=== PATIENT | male | born 1975 | race Caucasian/White ===

== ENCOUNTER 2017-06-09 12:43 | Emergency (ER) | payer SELFPAY ==
[~2017-06-09] VITALS: Ht 175.3 cm; Wt 80.0 kg
[2017-06-09 13:05] VITALS: BP 132/83; PULSE 93; RESP 16; TEMP 98.1; O2SAT 92
[2017-06-09] MEDS ORDERED: MORPHINE SULFATE 4 MG/ML INJ IV PUSH ONE (13:15)
[2017-06-09] MEDS ORDERED: ONDANSETRON HCL 4 MG/2 ML VIAL IVP ONE (13:15)
[2017-06-09] MEDS ORDERED: SODIUM CHLORIDE 0.9% FLUSH 10 ML FLUSH IVF PRN (13:15)
--- NOTE | 2017-06-09 13:24 | PD ---
HPI Chief Complaint: Head Injury Time Seen by Provider: 13:02 Travel History International Travel<30 days: No Contact w/Intl Traveler<30days: No Traveled to known affect area: No History of Present Illness HPI Patient is a 41-year-old male presenting to the emergency department for evaluation of seizure-like activity. Patient is Somali-speaking and an foreign language interpreter was utilized to obtain information. Patient reported that he hit his head with a this morning while trying to remove a nail with a crowbar at work. He states he felt completely fine prior to that. A few hours later patient's coworkers reported seizure-like activity. Per EMS when they arrived on scene patient was postictal and confused. Patient has no history of seizure disorder, denies any illicit drug use or excessive alcohol intake. Patient was working on the fifth floor, he was wearing his harness while he had the seizure. He is currently complaining of jaw pain and states he cannot move his jaw. He states his pain is a 7 out of 10. He reports his last tetanus vaccine was 6 years ago. He denies any significant medical history or allergies to medications. Symptom onset was sudden, symptoms are very moderate. PFSH Past Medical History Medical History: Denies Significant Hx Past Surgical History Surgical History: No Previous Surgery Social History Alcohol Use: Yes (OCC) Tobacco Use: No Substance Use: No Allergies-Medications (Allergen,Severity, Reaction): Coded Allergies: No Known Allergies (Unverified , 06/09/17) Reported Meds & Prescriptions Reported Meds & Active Scripts Active Ibuprofen 800 Mg Tab 800 Mg PO Q6HR PRN Percocet (Oxycodone-Acetaminophen) 5-325 mg Tab 1 Tab PO Q4H PRN Review of Systems Except as stated in HPI: all other systems reviewed are Neg HENT: No: Headaches, Neck Pain Cardiovascular: No: Chest Pain or Discomfort Gastrointestinal: No: Nausea, Abdominal Pain Musculoskeletal: Positive: Limited ROM, Pain Skin: Positive Other (Superficial laceration) Neurologic: Positive: Seizures Physical Exam Narrative GENERAL: Well-developed, well-nourished, alert male. Presenting in no acute distress. SKIN: Warm and dry. 1 cm superficial laceration and abrasion to left forehead. HEAD: Atraumatic. Normocephalic. Jaw appears edematous on the right side, significant limited range of motion. EYES: Pupils equal and round. No scleral icterus. No injection or drainage. ENT: No nasal bleeding or discharge. Mucous membranes pink and moist. NECK: Trachea midline. No JVD. CARDIOVASCULAR: Regular rate and rhythm. RESPIRATORY: No accessory muscle use. Clear to auscultation. Breath sounds equal bilaterally. GASTROINTESTINAL: Abdomen soft, non-tender, nondistended. Hepatic and splenic margins not palpable. MUSCULOSKELETAL: Extremities without clubbing, cyanosis, or edema. No obvious deformities. NEUROLOGICAL: Awake and alert. No obvious cranial nerve deficits. Motor grossly within normal limits. Five out of 5 muscle strength in the arms and legs. Normal speech. PSYCHIATRIC: Appropriate mood and affect; insight and judgment normal. Data Data Last Documented VS Vital Signs Date Time Temp Pulse Resp B/P (MAP) Pulse Ox O2 Delivery O2 Flow Rate FiO2 06/09/17 16:19 88 18 126/81 (96) 96 Room Air 06/09/17 13:05 98.1 Orders Orders Electrocardiogram (06/09/17 13:03) Prothrombin Time / Inr (Pt) (06/09/17 13:03) Act Partial Throm Time (Ptt) (06/09/17 13:03) Complete Blood Count With Diff (06/09/17 13:03) Comprehensive Metabolic Panel (06/09/17 13:03) Creatine Kinase (Cpk) (06/09/17 13:03) Drug Screen, Random Urine (06/09/17 13:03) Troponin I (06/09/17 13:03) Urinalysis - C+S If Indicated (06/09/17 13:03) Ct Brain W/O Iv Contrast(Rout) (06/09/17 13:03) Ecg Monitoring (06/09/17 13:03) Iv Access Insert/Monitor (06/09/17 13:03) Oximetry (06/09/17 13:03) Morphine Inj (Morphine Inj) (06/09/17 13:15) Ondansetron Inj (Zofran Inj) (06/09/17 13:15) Sodium Chloride 0.9% Flush (Ns Flush) (06/09/17 13:15) Ct Facial Bones W/O Iv Cont (06/09/17 ) Ct Cerv Spine W/O Contrast (06/09/17 ) CKMB (06/09/17 13:10) CKMB% (06/09/17 13:10) Morphine Inj (Morphine Inj) (06/09/17 14:45) Orphenadrine Inj (Norflex Inj) (06/09/17 14:45) Sodium Chlor 0.9% 1000 Ml Inj (Ns 1000 M (06/09/17 16:15) Midazolam Inj (Versed Inj) (06/09/17 17:45) Propofol 200 Mg/20 Ml Inj (Diprivan 200 (06/09/17 17:45) Labs Laboratory Tests Test 06/09/17 13:10 06/09/17 15:25 White Blood Count 8.4 TH/MM3 Red Blood Count 4.88 MIL/MM3 Hemoglobin 15.4 GM/DL Hematocrit 42.9 % Mean Corpuscular Volume 88.0 FL Mean Corpuscular Hemoglobin 31.5 PG Mean Corpuscular Hemoglobin Concent 35.8 % Red Cell Distribution Width 13.7 % Platelet Count 231 TH/MM3 Mean Platelet Volume 8.3 FL Neutrophils (%) (Auto) 72.1 % Lymphocytes (%) (Auto) 19.2 % Monocytes (%) (Auto) 5.4 % Eosinophils (%) (Auto) 2.6 % Basophils (%) (Auto) 0.7 % Neutrophils # (Auto) 6.1 TH/MM3 Lymphocytes # (Auto) 1.6 TH/MM3 Monocytes # (Auto) 0.5 TH/MM3 Eosinophils # (Auto) 0.2 TH/MM3 Basophils # (Auto) 0.1 TH/MM3 CBC Comment AUTO DIFF Differential Comment AUTO DIFF CONFIRMED Prothrombin Time 10.9 SEC Prothromb Time International Ratio 1.1 RATIO Activated Partial Thromboplast Time 19.7 SEC Blood Urea Nitrogen 21 MG/DL Creatinine 1.04 MG/DL Random Glucose 103 MG/DL Total Protein 7.5 GM/DL Albumin 3.7 GM/DL Calcium Level 7.9 MG/DL Alkaline Phosphatase 75 U/L Aspartate Amino Transf (AST/SGOT) 37 U/L Alanine Aminotransferase (ALT/SGPT) 59 U/L Total Bilirubin 0.3 MG/DL Sodium Level 139 MEQ/L Potassium Level 3.8 MEQ/L Chloride Level 102 MEQ/L Carbon Dioxide Level 28.3 MEQ/L Anion Gap 9 MEQ/L Estimat Glomerular Filtration Rate 79 ML/MIN Total Creatine Kinase 433 U/L Creatine Kinase MB 3.0 NG/ML Creatine Kinase MB % 0.7 % Troponin I LESS THAN 0.02 NG/ML Urine Color YELLOW Urine Turbidity HAZY Urine pH 7.5 Urine Specific [place] 1.022 Urine Protein 30 mg/dL Urine Glucose (UA) NEG mg/dL Urine Ketones NEG mg/dL Urine Occult Blood NEG Urine Nitrite NEG Urine Bilirubin NEG Urine Urobilinogen LESS THAN 2.0 MG/DL Urine Leukocyte Esterase NEG Urine WBC 3 /hpf Urine Hyaline Casts 1 /lpf Urine Sperm RARE Microscopic Urinalysis Comment CATH-CULT NOT IND Urine Opiates Screen NEG Urine Barbiturates Screen NEG Urine Amphetamines Screen NEG Urine Benzodiazepines Screen NEG Urine Cocaine Screen NEG Urine Cannabinoids Screen NEG MDM Medical Decision Making Medical Screen Exam Complete: Yes Emergency Medical Condition: Yes Interpretation(s) Vital Signs Date Time Temp Pulse Resp B/P (MAP) Pulse Ox O2 Delivery O2 Flow Rate FiO2 06/09/17 13:05 98.1 93 16 132/83 (99) 92 Differential Diagnosis Seizure versus fracture versus hemorrhage versus metabolic abnormality versus ACS versus AMI versus other Narrative Course Patient is a 41-year-old male presenting to emergency for evaluation after what appeared to be a seizure at work. Patient is favoring his jaw, he is unable to open and close it. Patient states vital signs are stable. Labs and imaging ordered and pending. Patient was initially seen in the [facility], he has been moved to [place] [id number] scan of the brain shows no acute findings, CT scan of the cervical spine with no acute findings, CT scan of the facial bones with no acute fracture, mandible is not dislocated. CT scan images were reevaluated by radiologist, jaw was bilaterally dislocated. Discussed with Dr. Parra who came to the emergency department and evaluated patient. Dr. Parra subsequently reduce the jaw. He ordered a jaw bra from the OR control desk. He stated that patient was able to eat a full liquid diet , he advised to keep the jaw bra on for 48 hours. Laceration to scalp does not need repair. Wound was cleaned and bandage applied. Patient has no history of seizure disorder, he is advised to follow-up with his primary doctor and/or neurologist for further evaluation. It is unclear if patient actually had seizure, reports are vague in regards to how the events unfolded. Patient was given instructions on avoiding heights, driving until he is evaluated by a primary doctor or at the [facility]. He verbalized understanding. Patient verbalized understanding of instructions. Patient stable for discharge. Diagnosis Primary Impression: Dislocation, jaw closed Qualified Codes: S03.00XA - Dislocation of jaw, unspecified side, initial encounter Additional Impression: Observed seizure-like activity Referrals: [facility] Primary Care Physician Patient Instructions: General Instructions, Mandibular Dislocation (ED), Nonepileptic Seizures (ED) Additional Instructions: Keep jaw bra on for 48 hours Maintain a liquid diet for 48 hours Follow-up with your primary doctor Return to emergency department for any new or worsening symptoms Take medication for pain as needed and as directed, do not drive or operate machinery while taking narcotic pain medication Avoid heights, avoid driving until you are reevaluated by your primary doctor in regards to possible seizure today. Med/Other Pt SpecificInfo: Prescription(s) given Scripts Ibuprofen (Ibuprofen) 800 Mg Tab 800 MG PO Q6HR Y for PAIN, #40 TAB 0 Refills Prov: Bell Nunez 06/09/17 Oxycodone-Acetaminophen (Percocet) 5-325 mg Tab 1 TAB PO Q4H Y for PAIN, #15 TAB 0 Refills Prov: Bell Nunez 06/09/17 Disposition: 01 DISCHARGE HOME Condition: Stable Bell Nunez Jun 09, 2017 13:24
--- NOTE | 2017-06-09 13:44 | RADRPT ---
EXAM DATE/TIME: 06/09/2017 13:24 [facility] COMPARISON: No previous studies available for comparison. INDICATIONS : Seizure, hit head. Cannot close jaw. RADIATION DOSE: 24.31 CTDIvol (mGy) MEDICAL HISTORY : None SURGICAL HISTORY : None. ENCOUNTER: Initial ACUITY: 1 day PAIN SCALE: 4/10 LOCATION: Bilateral facial TECHNIQUE: Volumetric scanning of the cervical spine was performed. Multiplanar reconstructions in the sagittal, coronal and oblique axial planes were performed. Using automated exposure control and adjustment o f the mA and/or kV according to patient size, radiation dose was kept as low as reasonably achievable to obtain optimal diagnostic quality images. DICOM format image data is available electronically f or review and comparison. FINDINGS: VERTEBRAE: Normal vertebral body height. ALIGNMENT: No evidence of subluxation. C2-C3: The bony spinal canal is normal in size. No evidence of disc bulge or herniation. The neural forami na are bilaterally patent. C3-C4: The bony spinal canal is normal in size. No evidence of disc bulge or herniation. The neural forami na are bilaterally patent. C4-C5: The bony spinal canal is normal in size. No evidence of disc bulge or herniation. The neural forami na are bilaterally patent. C5-C6: The bony spinal canal is normal in size. No evidence of disc bulge or herniation. The neural forami na are bilaterally patent. C6-C7: The bony spinal canal is normal in size. No evidence of disc bulge or herniation. The neural forami na are bilaterally patent. C7-T1: The bony spinal canal is normal in size. No evidence of disc bulge or herniation. The neural forami na are bilaterally patent. CONCLUSION: Negative for an acute process Luiz Chu MD FACR on June 09, 2017 at 13:42 Board Certified Radiologist. This report was verified electronically.
--- NOTE | 2017-06-09 13:44 | RADRPT ---
EXAM DATE/TIME: 06/09/2017 13:24 [facility] COMPARISON: No previous studies available for comparison. INDICATIONS : Seizure, hit head. Cannot close jaw. RADIATION DOSE: 69.15 CTDIvol (mGy) MEDICAL HISTORY : None SURGICAL HISTORY : None. ENCOUNTER: Initial ACUITY: 1 day PAIN SCALE: 4/10 LOCATION: Bilateral facial TECHNIQUE: Multiple contiguous axial images were obtained of the head. Using automated exposure control and adj ustment of the mA and/or kV according to patient size, radiation dose was kept as low as reasonably a chievable to obtain optimal diagnostic quality images. DICOM format image data is available electro nically for review and comparison. FINDINGS: CEREBRUM: The ventricles are normal for age. No evidence of midline shift, mass lesion, hemorrhage or acute in farction. No extra-axial fluid collections are seen. Previous surgery in the left from the region. Minimal encephalomalacic changes are present. POSTERIOR FOSSA: The cerebellum and brainstem are intact. The 4th ventricle is midline. The cerebellopontine angle i s unremarkable. EXTRACRANIAL: The visualized portion of the orbits is intact. SKULL: The calvaria is intact. No evidence of skull fracture. CONCLUSION: Negative for acute process Luiz Chu MD FACR on June 09, 2017 at 13:41 Board Certified Radiologist. This report was verified electronically.
--- NOTE | 2017-06-09 13:50 | RADRPT ---
EXAM DATE/TIME: 06/09/2017 13:24 This report includes an Addendum and supersedes previous reports for this exam. [facility] COMPARISON: No previous studies available for comparison. INDICATIONS : Seizure, hit head. Cannot close jaw. RADIATION DOSE: 26.51 CTDIvol (mGy) MEDICAL HISTORY : None SURGICAL HISTORY : None. ENCOUNTER: Initial ACUITY: 1 day PAIN SCORE: 4/10 LOCATION: Bilateral facial TECHNIQUE: Volumetric scanning of the facial bones was performed. Using automated exposure control and adjustme nt of the mA and/or kV according to patient size, radiation dose was kept as low as reasonably achiev able to obtain optimal diagnostic quality images. DICOM format image data is available electronicall y for review and comparison. FINDINGS: ORBITS: The orbital and infraorbital osseous structures are intact. The retroconal structures have a normal configuration. No radiopaque foreign bodies are seen. NASAL BONE: The superior nasal spine is fractured. maxillary spine are intact ZYGOMATIC ARCHES: Symmetric without evidence of fracture. SINUSES: The maxillary, ethmoid and frontal sinuses are intact. No air-fluid levels seen. Previous gita hole is seen in the left fundal bone NASAL CAVITY: The nasal septum is intact and midline. The lacrimal ducts are intact. SOFT TISSUES: No radiopaque foreign bodies seen. No soft-tissue swelling is seen. INTRACRANIAL: No intracranial air seen. CRIBIFORM PLATE: Grossly intact. CONCLUSION: Negative for acute fracture. Mandible does not appear to be dislocated. Luiz Chu MD FACR on June 09, 2017 at 13:46 Board Certified Radiologist. This report was verified electronically. ADDENDUM: Sagittal reconstructions of the original axial data set were performed. These do confirm bilateral an terior dislocation of the mandibular condyles. Jimi Snider MD on June 09, 2017 at 16:40 Board Certified Radiologist. This report was verified electronically.
[2017-06-09 13:53] LABS: AUTOMATED NEUTROPHIL # 6.1 TH/MM3 (1.8-7.7); BASOPHIL # 0.1 TH/MM3 (0-0.2); BASOPHIL % 0.7 % (0.0-2.0); EOSINOPHIL # 0.2 TH/MM3 (0-0.4); EOSINOPHIL % 2.6 % (0.0-4.0); HEMATOCRIT 42.9 % (39.0-51.0); HEMOGLOBIN 15.4 GM/DL (13.0-17.0); LYMPH % 19.2 % (9.0-44.0); LYMPHOCYTE # 1.6 TH/MM3 (1.0-4.8); MEAN CORPUSCULAR HEMOGLOBIN 31.5 PG (27.0-34.0); MEAN CORPUSCULAR HGB CONC 35.8 % (32.0-36.0); MEAN PLATELET VOLUME 8.3 FL (7.0-11.0); MONO % 5.4 % (0.0-8.0); MONOCYTE # 0.5 TH/MM3 (0-0.9); NEUT % 72.1 % (16.0-70.0); PLATELET COUNT 231 TH/MM3 (150-450); RED BLOOD COUNT 4.88 MIL/MM3 (4.50-5.90); RED CELL DISTRIBUTION WIDTH 13.7 % (11.6-17.2); WHITE BLOOD COUNT 8.4 TH/MM3 (4.0-11.0)
[2017-06-09 14:07] LABS: INTERNATIONAL NORMALIZED RATIO 1.1 RATIO; PROTHROMBIN TIME - PATIENT 10.9 SEC (9.8-11.6)
[2017-06-09 14:10] LABS: ALBUMIN 3.7 GM/DL (3.4-5.0); ALKALINE PHOSPHATASE 75 U/L (45-117); ALT (GPT) 59 U/L (12-78); AST (GOT) 37 U/L (15-37); BICARBONATE 28.3 MEQ/L (21.0-32.0); CALCIUM 7.9 MG/DL (8.5-10.1); CHLORIDE 102 MEQ/L (98-107); CREATININE 1.04 MG/DL (0.60-1.30); GLOMERULAR FILTRATION RATE 79 ML/MIN (>89); GLUCOSE,RANDOM 103 MG/DL (74-106); SODIUM (NA) 139 MEQ/L (136-145); TOTAL BILIRUBIN ADULT 0.3 MG/DL (0.2-1.0); TROPONIN I LESS THAN 0.02 NG/ML (0.02-0.05)
[2017-06-09 14:13] LABS: TOTAL PROTEIN 7.5 GM/DL (6.4-8.2)
[2017-06-09 14:14] LABS: BLOOD UREA NITROGEN 21 MG/DL (7-18)
[2017-06-09] MEDS ORDERED: ORPHENADRINE INJ 60 MG/2 ML AMP IV ONE (14:45)
[2017-06-09] MEDS ORDERED: MORPHINE SULFATE 2 MG/ML INJ IV PUSH ONE (14:45)
[2017-06-09 15:08] VITALS: BP 142/80; PULSE 92; RESP 18; O2SAT 97
[2017-06-09 15:10] VITALS: O2SAT 96
[2017-06-09 16:08] LABS: BILIRUBIN, URINE NEG (NEG); BLOOD, URINE NEG (NEG); GLUCOSE,URINE NEG (NEG); HYALINE CAST, URINE 1 /lpf (RARE); KETONE, URINE NEG (NEG); NITRITE,URINE NEG (NEG); PH, URINE 7.5 (5.0-8.5); SPERM, URINE RARE; URINE COLOR YELLOW (YELLW/STRAW); URINE LEUKOCYTE ESTERASE NEG (NEG)
[2017-06-09] MEDS ORDERED: SODIUM CHLOR 0.9% 1000 ML INJ 1,000 ML IV ONE (16:15)
[2017-06-09 16:19] VITALS: BP 126/81; PULSE 88; RESP 18; O2SAT 96
[2017-06-09] MEDS ORDERED: MIDAZOLAM HCL 5 MG/ML VIAL (1 ML) IV ONE (17:45)
[2017-06-09] MEDS ORDERED: PROPOFOL 200 MG/20 ML AMP IV ONE (17:45)
[2017-06-09] MEDS ORDERED: PERC5TAB12 PO (18:22)
[2017-06-09] MEDS ORDERED: IBUP1TAB7 PO (18:22)
[2017-06-09 19:16] VITALS: BP 124/64
--- NOTE | 2017-06-09 20:40 | MB ---
cc: Cosmo Parra DMD DATE OF CONSULT: 06/09/2017 REASON FOR CONSULTATION: Bilateral TMJ anterior dislocation. This is a 41-year-old male who came to the ER status post having a seizure type activity. He reported that he hit his head while to remove a nail with a crowbar at work. I have seen and examined this patient. The physicians and nurse, who speak Kyrgyz are translating at this point. He is awake, alert and oriented x 3 in no acute distress. PAST MEDICAL HISTORY: Denied. MEDICATIONS: Denied. ALLERGIES: DENIED. SOCIAL HISTORY: Alcohol occasionally. Denies any illicit drug use. Denies any smoking. PHYSICAL EXAMINATION: HEENT: There is an abrasion on the left side of the forehead, ____ dried heme. The mouth is wide open with what appears to be the bilateral condyles out of the fossa. Intraoral ____ pink, well perfused. No gross tenderness that is noted. CT scans of the facial bones show bilateral temporomandibular joint/the condyles are out of the fossa, anteriorly displaced. VITALS: Temperature 98.1, pulse is 88, respirations 18, blood pressure 126/81 with the pulse ox of 96%. IMPRESSION/PLAN: This is a 41-year-old male who has an anterior dislocated bilateral temporomandibular joints causing this open locked position. The plan is to at this point just reduce that in the emergency department. We took the patient out of the [facility] and placed him in a chair with his head gently supported by the wall. I put my thumb on his 2 posterior molar teeth and gently pushed down and backwards and the jaw just snapped right back into position. Good reduction and closure at this point. The condyles are in the fossa clinically. No tenderness, no gross clicking or popping noted at this point. The patient is comfortable and able to open and close his mouth without any discomfort. Finally got a jaw bra and wrapped his head and this kept the reduction into position at this point. Will plan to keep this jaw bra on for at least another 48-72 hours. He can have a full liquid soft diet. Will have him follow up in our office. Please not that all the translation was done by his nurse in conversation with the patient. Cosmo Parra DMD RT/rt , 06:17 PM , 08:38 PM
--- NOTE | 2017-06-10 23:35 | EKG ---
Date Performed: 06/09/2017 Time Performed: 13:19:20 PTAGE: 41 years EKG: Sinus rhythm MINIMAL VOLTAGE CRITERIA FOR LVH, CONSIDER NORMAL VARIANT NONSPECIFIC T-WAVE ABNORMALITY BORDERLINE ECG NO PREVIOUS TRACING DOCTOR: Chava Pavon Interpretating Date/Time 06/10/2017 23:33:23
== END 2017-06-09 19:22 | disposition home or self-care (01) ==
LOC: EDBD 12:43 → NEPE 12:43
DX: S03.03XA Dislocation of jaw, bilateral, initial encounter (principal); R56.9 Unspecified convulsions; S00.81XA Abrasion of other part of head, initial encounter; R94.31 Abnormal electrocardiogram [ECG] [EKG]; W22.8XXA Striking against or struck by other objects, initial encounter; R41.0 Disorientation, unspecified; Y93.H3 Activity, building and construction; Y99.0 Civilian activity done for income or pay; Z79.899 Other long term (current) drug therapy
CPT/HCPCS: 21480; 70450; 70486; 72125; 80053; 80307; 81001; 82550; 82552; 84484; 85025; 85610; 85730; 93005; 96361; 96374; 96375; 96376; 99285; J2270; J2360; J2405; J7030